=== PATIENT | female | born 1970 | race Caucasian/White ===

== ENCOUNTER → 2020-10-02 13:05 | Outpatient (BNVA) | payer OTHER, SELFPAY | PROVIDERS: Family Provider Family Medicine; PCP Pediatrics; Visit Provider Specialist | DX: R20.0 Anesthesia of skin (principal); R20.2 Paresthesia of skin; M79.601 Pain in right arm; M77.8 Other enthesopathies, not elsewhere classified | CPT/HCPCS: 95908; G0463 ==